=== PATIENT | male | born 1945 | race Caucasian/White ===

== ENCOUNTER → 2017-02-07 | Outpatient (CLI) | payer MEDICARE, OTHER | END | disposition home or self-care (01) | LOC: GMAL 11:10 | PROVIDERS: ATTEND Family Medicine | DX: E55.9 Vitamin D deficiency, unspecified (principal) ==

== ENCOUNTER → 2017-06-12 | Outpatient (CLI) | payer MEDICARE, OTHER | END | disposition home or self-care (01) | LOC: GMAL 10:49 | PROVIDERS: ATTEND Family Medicine | DX: D51.3 Other dietary vitamin B12 deficiency anemia (principal) ==

== ENCOUNTER → 2018-02-13 | Outpatient (CLI) | payer OTHER | LOC: GMAL 10:19 | PROVIDERS: ATTEND Family Medicine | DX: E55.9 Vitamin D deficiency, unspecified (principal) ==

== ENCOUNTER → 2018-07-06 | Outpatient (CLI) | payer OTHER | LOC: LAB.O 11:07 | PROVIDERS: ATTEND Family Medicine | DX: M25.50 Pain in unspecified joint (principal) ==

== ENCOUNTER → 2018-07-30 | Outpatient (CLI) | payer OTHER | LOC: GMAL 11:17 | PROVIDERS: ATTEND Family Medicine | DX: Z12.5 Encounter for screening for malignant neoplasm of prostate (principal); E55.9 Vitamin D deficiency, unspecified | CPT/HCPCS: 82306; G0103 ==

== ENCOUNTER → 2018-08-07 | Outpatient (CLI) | payer OTHER | LOC: GMAL 15:47 | PROVIDERS: ATTEND Family Medicine | DX: M10.00 Idiopathic gout, unspecified site (principal) ==

== ENCOUNTER → 2018-11-08 | Outpatient (CLI) | payer OTHER | LOC: GMAL 10:46 | PROVIDERS: ATTEND Family Medicine | DX: D51.3 Other dietary vitamin B12 deficiency anemia (principal); M10.00 Idiopathic gout, unspecified site; E55.9 Vitamin D deficiency, unspecified ==

== ENCOUNTER → 2019-05-15 | Outpatient (CLI) | payer OTHER | LOC: GMAL 10:37 | PROVIDERS: ATTEND Family Medicine | DX: E55.9 Vitamin D deficiency, unspecified (principal); M10.00 Idiopathic gout, unspecified site; I10 Essential (primary) hypertension; E78.49 Other hyperlipidemia ==

== ENCOUNTER 2020-02-29 15:59 | Emergency (ER) | payer OTHER ==
[2020-02-29] MEDS ORDERED: SODIUM CHLORIDE 0.9% 1000ML 1,000 ML IVS PRN (16:19)
[2020-02-29] MEDS ORDERED: ACETAMINOPHEN 500 MG TAB PO ONE (16:23)
--- NOTE | 2020-02-29 16:31 | ED.PDOC ---
History of Present Illness - General Chief Complaint: Respiratory Problem Stated Complaint: COVID +, persistent cough, SOB Time Seen by Provider: 02/29/20 16:05 Source: patient, RN notes reviewed, Vital Signs reviewed - History of Present Illness Comments: Patient is a 74-year-old male who presents to ED for 3-week history of cough and intermittent fever. States his symptoms began on February 12 with cough, intermittent fever and fatigue. He tested positive for COVID-19 on February 17. He has been seen by his PCP who prescribed an albuterol nebulizer which improves his symptoms for a few hours then the cough returns. Has been taking Tylenol at home for intermittent fevers. He denies being short of breath but says he has been less active than usual. He has used a home pulse ox that has read 92 to 96%. He is not on oxygen at home. States his symptoms have not improved so came to ED for evaluation today. Denies chest pain, headache, vomiting, diarrhea, abdominal pain. Full PPE with N 95, [place] shield worn each time visiting patient room. Allergies/Adverse Reactions: Allergies Oxycodone [From Oxycontin] Allergy (Mild, Verified 02/29/20 16:34) confusion Home Medications: Ambulatory Orders Aspirin [Baby Aspirin] 81 mg PO BEDTIME 03/26/14 Cetirizine HCl [Zyrtec] 10 mg PO DAILY 03/26/14 Multiple Vitamins W/ Minerals [Multi For Him] 1 tab PO DAILY 03/26/14 Coenzyme Q10 (Ubidecarenone) [Coq-10] 1 cap PO DAILY 09/01/14 Allopurinol [Zyloprim] 100 mg PO DAILY 02/29/20 levoFLOXacin [Levaquin] 500 mg PO DAILY 7 Days #7 tab 02/29/20 Review of Systems - Review of Systems Constitutional: States: fever, malaise. Denies: chills EENTM: States: nose congestion. Denies: blurred vision, throat pain, throat swelling Respiratory: States: cough, wheezing. Denies: short of breath Cardiology: Denies: chest pain, edema, palpitations, syncope Gastrointestinal/Abdominal: States: nausea. Denies: abdominal pain, vomiting Genitourinary: Denies: dysuria, frequency, hematuria Musculoskeletal: Denies: joint swelling, neck pain Skin: States: no symptoms reported Neurological: Denies: headache, paresthesia All other Systems: Reviewed and Negative Past Medical History (General) - Patient Medical History Hx Seizures: No Hx Stroke: No Hx Dementia: No Hx Asthma: No Hx of COPD: No Hx Cardiac Disorders: Yes - elevated cholesterol Hx Congestive Heart Failure: No Hx Pacemaker: No Hx Hypertension: Yes Hx Thyroid Disease: No Hx Diabetes: No Hx Gastroesophageal Reflux: No Hx Renal Disease: No Hx Cancer: No Hx of HIV: No Hx Hepatitis C: No Hx MRSA: No - Vaccination History Hx Tetanus, Diphtheria Vaccination: Yes Hx Influenza Vaccination: Yes Hx Pneumococcal Vaccination: Yes - Social History Hx Tobacco Use: No Hx Chewing Tobacco Use: No Hx Alcohol Use: No Hx Substance Use: No Hx Substance Use Treatment: No Hx Depression: No Hx Physical Abuse: No Hx Emotional Abuse: No Hx Suspected Abuse: No - Female History Patient : No Family Medical History - Family History Mother Living Status: Hx Family Cancer: Yes Father Living Status: Hx Family Cancer: Yes - lung Physical Exam - Physical Exam General Appearance: Alert, Comfortable, No apparent distress, Other - Lying on bed, coughs frequently. no distress Neck: non-tender, full range of motion, supple Respiratory: chest non-tender, no respiratory distress, other - Good air movement. Speaks in full sentences. Has faint wheeze on expiration with coughing. Cardiovascular/Chest: normal peripheral pulses, no edema, no murmur - Tachycardia, regular rhythm Gastrointestinal/Abdominal: non tender, soft, no pulsatile mass Extremity: normal range of motion, non-tender, no pedal edema, no calf tenderness Neurologic: no motor/sensory deficits, alert, normal mood/affect, oriented x 3 Skin Exam: normal color, warm/dry Progress - Progress Progress: 02/29/20 16:33 Differential diagnosis includes but is not limited to COVID-19, pneumonia, bronchitis, asthma, COPD, sepsis, dehydration 02/29/20 17:44 Patient resting comfortably, feels improved after IV fluids. Tachycardia has improved. O2 sat is 95 to 96% on room air. He has no respiratory distress and speaks in full sentences. Discussed with patient he Z possible infiltrates on chest x-ray. He states that his symptoms have been going on for almost 3 weeks, but does think his fever and cough have been worse the last 2 to 3 days. Discussed the possibility of secondary bacterial pneumonia at this point causing his symptoms. He is nontoxic with no hypoxia or respiratory distress and feels comfortable going home. He is not requiring oxygen at this time. We will plan to treat with Levaquin and I have asked him to follow-up with his PCP within 48 hours for continued evaluation. I have instructed patient to return to ED for any worsening of symptoms and to continue to monitor his pulse ox at home and he will return for anything less than 90%. - Results/Orders Results/Orders: EKG-- Sinus tachycardia, rate 115, nml intervals, nonspecific ST abnormality Chest Xray Question hazy infiltrates in bilateral lung bases 02/29/20 16:19 Sodium Chloride 0.9% 1000ML [Ns 1000 ml] 1,000 ml IVS .QD 02/29/20 16:20 Pulse Ox Stat 02/29/20 16:22 Pulse Oximetry Assessment DAILY 02/29/20 16:30 EKG STAT 02/29/20 16:51 FERRITIN Stat BLOOD CULTURE Stat Laboratory Results - last 24 hr 02/29/20 02/29/20 02/29/20 16:51 16:51 16:51 WBC 6.7 RBC 4.68 L Hgb 14.6 Hct 41.8 L MCV 89.2 MCH 31.2 H MCHC 35.0 RDW 13.0 Plt Count 213 MPV 8.9 Absolute Neuts (auto) 5.50 Absolute Lymphs (auto) 0.70 L Absolute Monos (auto) 0.50 Absolute Eos (auto) 0.00 Absolute Basos (auto) 0.00 Neutrophils % 81.8 H Lymphocytes % 9.8 L Monocytes % 8.1 Eosinophils % 0.1 L Basophils % 0.2 Sodium 131 L Potassium 4.6 Chloride 97 L Carbon Dioxide 23 Anion Gap 15.6 BUN 13 Creatinine 1.13 BUN/Creatinine Ratio 11.5 Random Glucose 105 Serum Osmolality 263.1 L Lactic Acid 1.2 Calcium 8.7 Total Bilirubin 1.7 H AST 79 H ALT 65 H Alkaline Phosphatase 75 C-Reactive Protein B-Natriuretic Peptide 20.6 Serum Total Protein 7.7 Albumin 3.5 Globulin 4.2 H Albumin/Globulin Ratio 0.8 L 02/29/20 16:51 WBC RBC Hgb Hct MCV MCH MCHC RDW Plt Count MPV Absolute Neuts (auto) Absolute Lymphs (auto) Absolute Monos (auto) Absolute Eos (auto) Absolute Basos (auto) Neutrophils % Lymphocytes % Monocytes % Eosinophils % Basophils % Sodium Potassium Chloride Carbon Dioxide Anion Gap BUN Creatinine BUN/Creatinine Ratio Random Glucose Serum Osmolality Lactic Acid Calcium Total Bilirubin AST ALT Alkaline Phosphatase C-Reactive Protein 19.9 H* B-Natriuretic Peptide Serum Total Protein Albumin Globulin Albumin/Globulin Ratio Departure - Departure Clinical Impression: COVID-19, Acute febrile illness CAP (community acquired pneumonia) Qualifiers: Laterality: unspecified laterality Qualified Code(s): J18.9 - Pneumonia, unspecified organism Time of Disposition: 17:59 Disposition: Discharge to Home or Self Care Condition: Fair Departure Forms: ED Discharge - Pt. Copy, Patient Portal Self Enrollment Instructions: DI for Pneumonia -- Adult Diet: resume usual diet Activity: increase activity as tolerated Referrals: Narciso Talbot III, MD [Primary Care Provider] - 1-2 Days Prescriptions: levoFLOXacin [Levaquin] 500 mg PO DAILY 7 Days #7 tab Home Medications: Ambulatory Orders Aspirin [Baby Aspirin] 81 mg PO BEDTIME 03/26/14 Cetirizine HCl [Zyrtec] 10 mg PO DAILY 03/26/14 Multiple Vitamins W/ Minerals [Multi For Him] 1 tab PO DAILY 03/26/14 Coenzyme Q10 (Ubidecarenone) [Coq-10] 1 cap PO DAILY 09/01/14 Allopurinol [Zyloprim] 100 mg PO DAILY 02/29/20 levoFLOXacin [Levaquin] 500 mg PO DAILY 7 Days #7 tab 02/29/20
--- NOTE | 2020-02-29 17:08 | RAD ---
EXAM: XR Chest, 1 View CLINICAL HISTORY: The patient is 74 years old and is Male; cough TECHNIQUE: Single portable upright view of the chest. COMPARISON: March 31, 2014. FINDINGS: Lungs: Question hazy infiltrates in the bilateral lung bases. Hyperinflation. Pleural space: No pleural effusion or pneumothorax. Heart: Unremarkable. No cardiomegaly. Mediastinum: Unremarkable. Bones/joints: Degenerative changes in the spine and right shoulder. No acute fracture visualized. Upper abdomen: No free air in the visualized upper abdomen. IMPRESSION: Question hazy infiltrates in the bilateral lung bases. Electronically signed by: Mercedez Palma MD 02/29/2020 5:07 PM CDT
[2020-02-29] MEDS ORDERED: levoFLOXacin 500 MG TAB PO ONE (17:43)
[2020-02-29 18:20] VITALS: BP 128/76; TEMP 100.1; O2SAT 93
== END 2020-02-29 18:10 | disposition home or self-care (01) ==
LOC: ER 15:59
DX: U07.1 COVID-19 (principal); R50.9 Fever, unspecified; R00.0 Tachycardia, unspecified; J18.9 Pneumonia, unspecified organism; I10 Essential (primary) hypertension; Z79.82 Long term (current) use of aspirin; Z79.899 Other long term (current) drug therapy
CPT/HCPCS: 36415; 71045; 80053; 82728; 83605; 83880; 85025; 86140; 87040; 93005; J7030

== ENCOUNTER → 2020-05-19 | Outpatient (CLI) | payer OTHER | LOC: GMAL 11:08 | PROVIDERS: ATTEND Family Medicine | DX: R53.83 Other fatigue (principal); I10 Essential (primary) hypertension; E78.49 Other hyperlipidemia ==

== ENCOUNTER → 2020-09-14 | Outpatient (CLI) | payer MEDICARE | LOC: GMAL 11:09 | PROVIDERS: ATTEND Family Medicine | DX: D51.3 Other dietary vitamin B12 deficiency anemia (principal); Z12.5 Encounter for screening for malignant neoplasm of prostate; R53.82 Chronic fatigue, unspecified; M10.00 Idiopathic gout, unspecified site; E55.9 Vitamin D deficiency, unspecified; E78.49 Other hyperlipidemia | CPT/HCPCS: 82306; 82607; 84443; 84550; G0103 ==